=== PATIENT | female | born 2000 ===

== ENCOUNTER 2023-05-20 11:14 | Emergency (ER) | payer SELFPAY ==
[2023-05-20] MEDS ORDERED: Famotidine/PF 20 mg/2ml Vial ONE (11:32)
== END 2023-05-20 12:17 | disposition home or self-care (01) ==
LOC: ERS 11:14
DX: T78.2XXA Anaphylactic shock, unspecified, initial encounter (principal); I10 Essential (primary) hypertension
CPT/HCPCS: 96374; S0028